=== PATIENT | female | born 1975 | race Caucasian/White ===

== ENCOUNTER 2022-09-28 11:40 | Outpatient (REF) | payer OTHER, SELFPAY ==
[2022-09-28 11:52] LABS: MANUAL DIFF FLAG NO
[2022-09-28 12:15] LABS: Basophils Percent Auto 0.6 % (0-2); Eosinophils Percent Auto 0.7 % (0-4); Hematocrit 42.3 % (37.0-47.0); Hemoglobin 13.6 g/dl (12.0-16.0); Imm Gran Abs Auto 0.01 X10*3/uL (0.00-0.03); Imm Gran Pct Auto 0.2 % (0.0-0.4); Lymphocytes Absolute Auto 1.3 X10*3/uL (1.2-4.9); Lymphocytes Percent Auto 23.2 % (20-40); Mean Corpuscular HGB Conc 32.2 g/dl (31.0-35.0); Mean Corpuscular Volume 105.8 fL (80.0-98.0); Mean Platelet Volume 10.2 fL (9.4-12.3); Monocytes Absolute Auto 0.6 X10*3/uL (0.1-1.2); Monocytes Percent Auto 10.2 % (2-11); Neutrophils Absolute Auto 3.5 x10*3/uL (2.0-8.3); Neutrophils Percent Auto 65.1 % (45-73); Platelet Count 199 X10*3/uL (160-400); White Blood Count 5.4 X10*3/uL (4.8-10.8)
[2022-09-28 12:43] LABS: Alanine Aminotransferase 87 U/L (0-31); Albumin Level 4.2 g/dL (3.5-5.0); Alkaline Phosphatase 140 U/L (39-117); Anion Gap 16 (12-20); Aspartate Amino Transferase 49 U/L (5-31); Bilirubin Total 0.2 mg/dL (0.0-1.0); Blood Urea Nitrogen 8 mg/dL (9-16); Calcium 9.6 mg/dL (8.4-10.2); Carbon Dioxide 27 mmol/L (22-29); Chloride 103 mmol/L (96-108); Estimated Glomerular Filt Rate > 60; Glucose Random 80 mg/dL (60-115); Potassium 4.2 mmol/L (3.3-5.1); Sodium 142 mmol/L (135-145); Total Protein 6.6 g/dL (6.5-8.0)
[2022-10-01 09:19] LABS: HBS Num1 2.45 mIU/mL (0-7.99); HBc Num1 0.09 S/CO (0.00-0.79); HBsAGNum1 0.18 S/CO (0.00-0.99); HIV AB/AG Nonreactive (Nonreactive); HIV Num 1 0.08 S/CO (0.00-0.99); Hepatitis B Core Antibody Nonreactive (Nonreactive); Hepatitis B Surface Antigen Negative (Negative); ~HepC Num1 0.17 S/CO (0.00-0.79); ~Hepatitis B Surface Antibody NONREACTIVE (Nonreactive); ~Hepatitis C Antibody Nonreactive (Nonreactive)
[2022-10-03 08:03] LABS: Hepatitis A Antibody IgM 0.19 Index (0-0.79); ~Hepatitis A Antibody IgM Nonreactive (Nonreactive)
== END 2022-09-28 11:41 | disposition home or self-care (01) ==
LOC: HO.LAB 11:40
PROVIDERS: PCP Internal Medicine; Visit Provider Nurse Practitioner Psychiatric/Mental Health
DX: Z11.4 Encounter for screening for human immunodeficiency virus [HIV] (principal); F10.20 Alcohol dependence, uncomplicated; Z51.81 Encounter for therapeutic drug level monitoring; Z79.899 Other long term (current) drug therapy
CPT/HCPCS: 36415; 80053; 80305; 85025; 86704; 86706; 86709; 86803; 87340; 87389; 99202

== ENCOUNTER 2022-10-05 09:48 | Outpatient (REF) | payer OTHER, SELFPAY ==
[2022-10-05 15:22] LABS: Fentanyl, urine Not Detected (Not Detect)
== END 2022-10-05 09:49 | disposition home or self-care (01) ==
LOC: HO.LAB 09:48
PROVIDERS: PCP Internal Medicine; Visit Provider Nurse Practitioner Psychiatric/Mental Health
DX: F10.20 Alcohol dependence, uncomplicated (principal); Z51.81 Encounter for therapeutic drug level monitoring; Z79.899 Other long term (current) drug therapy
CPT/HCPCS: 80305; 80307; 99212

== ENCOUNTER 2022-10-22 08:00 | Outpatient (RCR) | payer OTHER, SELFPAY ==
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
[2022-10-08 15:24] LABS: Amphetamine Screen Urine Not Detected (Not Detect); Barbiturates, Urine Not Detected (Not Detect); Benzodiazepines Screen Urine Not Detected (Not Detect); Cannabinoid Screen Urine POSITIVE (Not Detect); Cocaine Screen Urine Not Detected (Not Detect); Fentanyl, urine Not Detected (Not Detect); Opiate Screen Urine Not Detected (Not Detect); Phencyclidine Screen Urine Not Detected (Not Detect)
--- NOTE | 2022-10-08 16:27 | PC.ADMIT ---
Patient is a 47 year old single female who was referred to PHP by Stephany Neville CNP at the [facility] where patient receives medication assisted treatment for ETOH use. Patient reports she was sober from ETOH for the past year and a half and relapsed on ETOH for the past 6 months. Patient reports last use 09/20/22 and is looking for support for continued sobriety in addition to support for mental health issues. Patient is attending AA 4 days a week. Patient reports she was detoxed from ETOH with Ativan from her PCP. Denied current withdrawal sxs. Patient is alert and oriented x4. Calm and cooperative. Presented with depressed mood and anxious affect. Tearful at times. Denied SI or thoughts to harm herself. Medications reconciled with patient and patient's pharmacy. Taking medications as prescribed with the exception of forgetting to take afternoon dose of Acamprosate. Educated patient on ways to remember to take afternoon dose.
--- NOTE | 2022-10-09 11:48 | HO.PHPIOP ---
I met with pt to discuss treatment plan, aftercare, and schedule. She reported adherence with goals stated on treatment plan, and stressed that sobriety is her ultimate goal. We discussed several options for aftercare including a substance use IOP to continue the work she is starting at [facility]. She declined for now but said she'd keep it in mind. I agreed to refer pt to [facility] for aftercare. Pt has been attending AA meetings daily and has a sponsor who she connects well with.
--- NOTE | 2022-10-09 14:58 | HO.PHPIOP ---
I met with the client after she left the last group. She stated that she4 was feeling overwhelmed and playing a game wasnt going to help her. I tried to help her understand how group recreation can be helpful. She states that not at this time of early recovery for her. She became tearful when was discussed how difficult early recovery can be . She decided to take a walk outside while she was waiting for her ride. She has plans to attend [facility]. We agreed she could talk to Vanessa tomorrow about her schedule.
--- NOTE | 2022-10-11 15:55 | HO.PHPIOP ---
Case opened in treatment team.
--- NOTE | 2022-10-16 15:45 | P.PNPSP_ITS ---
Subjective Subjective Date of Service: 10/16/22 Reason For Visit: depression,anxiety Medical Problems Affecting Mental Status: No Interim History: Describes mood as good today. No SI, no safety concerns. Finding groups helpful. Campral not helping much with cravings. Continues to remain abstinent, participating in 12 step groups. Taking hydroxyzine prn for anxidety, request dose increase. Medication Compliance: Yes Side effects from medications: No Attending Groups: Yes Review of Systems Acute medical concerns: No Medical Review of Systems: unchanged Review of Systems Review of Systems Yes all other systems are reviewed and are negative Constitutional: Reports no additional constitutional complaints Mental Status Exam Mental Status Exam Narrative: NAD Patient Appearance: Appropriate Patient Orientation: Person, Place, Time and Situation Level of Consciousness: Appropriate Patient Behavior: Appropriate, Cooperative and Good Eye Contact Mood Description: Appropriate Affect Description: Anxious (less anxious today) Patient Cognition Impaired: No Ability to Follow Directions: Excellent Speech Pattern: Clear and Appropriate Memory Description: Intact Hallucinations: None Delusions: Not Present Thought Process: Intact Thought Content: positive for Intact Depressive Symptoms: Increased Anxiety, Difficulty Sleeping, Loss of Int. in Activity, Feelings of Guilt and Low Self Esteem Judgement: Fair Assessment & Plan Assessment & Plan (1) MDD (major depressive disorder): Status: Acute Code(s): F32.9 - Major depressive disorder, single episode, unspecified Assessment and Plan: Describes mood as good today. Taking Paxil as prescribed. No SI, no safety concerns. Finding groups helpful. Campral not helping much with cravings. Discussed last use of Suboxone. Patient states that it was over several weeks ago. Discussed changing from Campral to naltrexone. Patient was in agreement with this. She wants to ultimately received Vivitrol. Continues to remain abstinent, participating in 12 step groups. Taking hydroxyzine prn for anxidety, request dose increase. States that she has taken extra dose several times in order to help with anxiety. (2) Generalized anxiety disorder: Status: Acute Code(s): F41.1 - Generalized anxiety disorder (3) Alcohol use disorder, moderate, dependence: Status: Acute Code(s): F10.20 - Alcohol dependence, uncomplicated Plan 1. Continue with current [facility] plan of care. 2. Discontinue Campral. 3. Start naltrexone 50 mg daily. Patient instructed to take 25 mg daily for for several days. 4. Increase hydroxyzine to 50 mg four times daily p.r.n./anxiety. 5. Continue other medications as currently prescribed. 6. Follow-up as per protocol. Patient educated on: diagnosis, medication risk/benefits, substance abuse and therapeutic strategies Informed Consent: understands Reason for contiued partial hosp. stay Substantial Risk for: inability to function and rapid decompensation Certification I certify that partial hospital treatment is medically necessary due to the symptoms and problems resulting from the patient's mental illness and the failure to treat the patient at the partial hospital level of care would likely result in the patient requiring inpatient psychiatric care which could not be prevented at a less intensive level of care. I spent minutes with the patient and/or on the patient floor today, greater than?50% of which was spent counseling/coordinating care. Discharge Plan Discharge Attending provider: Sandeep Archuleat Medications: New nicotine 21 mg/24 hr patch 24 hour 1 patch transdermal DAILY Qty: 28 0RF naltrexone 50 mg tablet 50 mg PO DAILY Qty: 7 0RF Rx Instructions: take 1/2 tab (25mg) first 2 to 3 days, then astart 1 tab (50mg) daily hydroxyzine HCl 50 mg tablet 50 mg PO QID PRN (Reason: anxiety) Qty: 120 0RF Discontinued acamprosate 333 mg tablet,delayed release (DR/EC) 666 mg PO TID Qty: 84 0RF hydroxyzine HCl 25 mg tablet 25 mg PO TID PRN (Reason: anxiety) Qty: 30 0RF No Action folic acid 1 mg tablet 1 mg PO DAILY Qty: 30 0RF thiamine HCl (vitamin B1) 100 mg tablet 100 mg PO DAILY Qty: 30 0RF paroxetine HCl [Paxil] 20 mg Tablet 20 mg PO DAILY
--- NOTE | 2022-10-22 17:14 | P.PNPSP_ITS ---
Subjective Subjective Date of Service: 10/22/22 Reason For Visit: depression,anxiety Medical Problems Affecting Mental Status: No Interim History: Patient describes mood today as ?I am okay, happy ?. Denies any symptoms of depression or anxiety at this time. No SI, no safety concerns. Continues with naltrexone, with positive effect. Continues to remain abstinent from alcohol. Currently active in 12 step programs, building support network of others in recovery. Feels stable, states that she feels ready for discharge from [facility] at this time. Medication Compliance: Yes Side effects from medications: No Attending Groups: Yes Review of Systems Acute medical concerns: No Medical Review of Systems: unchanged Review of Systems Review of Systems Yes all other systems are reviewed and are negative Constitutional: Reports no additional constitutional complaints Mental Status Exam Mental Status Exam Narrative: NAD Patient Appearance: Appropriate Patient Orientation: Person, Place, Time and Situation Level of Consciousness: Appropriate Patient Behavior: Appropriate, Cooperative and Good Eye Contact Mood Description: Happy and Appropriate Affect Description: Happy and Appropriate Patient Cognition Impaired: No Ability to Follow Directions: Excellent Speech Pattern: Clear, Appropriate and Coherent Memory Description: Intact Hallucinations: None Delusions: Not Present Thought Process: Intact Thought Content: positive for Intact Judgement: Good Assessment & Plan Assessment & Plan (1) Alcohol use disorder, moderate, dependence: Status: Acute Code(s): F10.20 - Alcohol dependence, uncomplicated Assessment and Plan: Patient reports she feels ?happy today ?. Denies any overt symptoms of depression, anxiety, SI/HI. Reports that she feels safe. Currently active in a 12 step program, has built a sober network of people. Plans to return to work in 1 week. Continues with oral naltrexone, with good effect. Currently being treated at [facility]. Continues to remain with them. States that she feels stable for discharge at this time. Reports that she has found this program to be helpful. Discussed referral to add Care Intensive Outpatient program specifically focused on substance use, she states she does not feel she needs that program at this time. States that she will call them if she feels the need. (2) MDD (major depressive disorder): Status: Acute Code(s): F32.9 - Major depressive disorder, single episode, unspecified (3) Generalized anxiety disorder: Status: Acute Code(s): F41.1 - Generalized anxiety disorder Plan 1. Patient appears stable for discharge from [facility] at this time. 2. Patient to follow-up with outpatient providers going forward. Patient educated on: diagnosis, medication risk/benefits, substance abuse and therapeutic strategies Informed Consent: understands Reason for contiued partial hosp. stay Substantial Risk for: stable for discharge Certification I certify that partial hospital treatment is medically necessary due to the symptoms and problems resulting from the patient's mental illness and the failure to treat the patient at the partial hospital level of care would likely result in the patient requiring inpatient psychiatric care which could not be prevented at a less intensive level of care. I spent minutes with the patient and/or on the patient floor today, greater than?50% of which was spent counseling/coordinating care. Discharge Plan Discharge Attending provider: Sandeep Archuleta Additional Instructions: In-person appointment with therapist Ender De La Torre on 12/29/21 at 10am at [facility] ([facility] [address] [place] [address]. Telehealth appointment, 1 hour psychiatric evaluation with med provider Reina Roque from [facility] on 11/21/22 at 11am. Telehealth appointment, medication management follow-up, with med provider Reina Roque from [facility] on 12/20/22 at 11am. Medications: New nicotine 21 mg/24 hr patch 24 hour 1 patch transdermal DAILY Qty: 28 0RF hydroxyzine HCl 50 mg tablet 50 mg PO QID PRN (Reason: anxiety) Qty: 120 0RF naltrexone 50 mg tablet 50 mg PO DAILY Qty: 14 0RF Discontinued acamprosate 333 mg tablet,delayed release (DR/EC) 666 mg PO TID Qty: 84 0RF hydroxyzine HCl 25 mg tablet 25 mg PO TID PRN (Reason: anxiety) Qty: 30 0RF No Action folic acid 1 mg tablet 1 mg PO DAILY Qty: 30 0RF thiamine HCl (vitamin B1) 100 mg tablet 100 mg PO DAILY Qty: 30 0RF paroxetine HCl [Paxil] 20 mg Tablet 20 mg PO DAILY Stand Alone Forms: Patient Portal Discharge page Patient Education: Depression (DC), Alcohol Use Disorder (DC)
== END 2022-10-22 23:59 | disposition home or self-care (01) ==
LOC: HO.PHPA 08:00
PROVIDERS: Nurse Practitioner Psychiatric/Mental Health; Visit Provider Psychiatry & Neurology Psychiatry
DX: F32.9 Major depressive disorder, single episode, unspecified (principal); F41.1 Generalized anxiety disorder; F10.20 Alcohol dependence, uncomplicated; Z79.899 Other long term (current) drug therapy
CPT/HCPCS: 80307; 90792; 90853

== ENCOUNTER → 2022-10-24 09:44 | Outpatient (BNVA) | payer OTHER, SELFPAY | PROVIDERS: PCP Internal Medicine; Visit Provider Nurse Practitioner Psychiatric/Mental Health | DX: F10.20 Alcohol dependence, uncomplicated (principal) | CPT/HCPCS: 99212 ==

== ENCOUNTER → 2022-11-12 09:44 | Outpatient (BNVA) | payer OTHER, SELFPAY | PROVIDERS: PCP Internal Medicine; Visit Provider Nurse Practitioner Psychiatric/Mental Health | DX: Z51.81 Encounter for therapeutic drug level monitoring (principal); Z32.01 Encounter for pregnancy test, result positive; F11.20 Opioid dependence, uncomplicated | CPT/HCPCS: 80305; 81025; 96372; 99212 ==

== ENCOUNTER 2022-12-10 09:26 | Outpatient (REF) | payer OTHER, SELFPAY ==
[2022-12-10 11:08] LABS: Alanine Aminotransferase 15 U/L (0-31); Albumin Level 4.4 g/dL (3.5-5.0); Alkaline Phosphatase 94 U/L (39-117); Aspartate Amino Transferase 16 U/L (5-31); Bilirubin Direct 0.2 mg/dL (0.0-0.5); Bilirubin Total 0.4 mg/dL (0.0-1.0); Total Protein 6.8 g/dL (6.5-8.0)
== END 2022-12-10 09:27 | disposition home or self-care (01) ==
LOC: HO.LAB 09:26
PROVIDERS: PCP Internal Medicine; Visit Provider Nurse Practitioner Psychiatric/Mental Health
DX: F10.20 Alcohol dependence, uncomplicated (principal); F17.210 Nicotine dependence, cigarettes, uncomplicated; Z51.81 Encounter for therapeutic drug level monitoring; Z79.899 Other long term (current) drug therapy; Z32.00 Encounter for pregnancy test, result unknown
CPT/HCPCS: 36415; 80076; 80305; 81025; 96372; 99212

== ENCOUNTER → 2023-01-07 09:36 | Outpatient (BNVA) | payer OTHER, SELFPAY | PROVIDERS: PCP Internal Medicine; Visit Provider Nurse Practitioner Psychiatric/Mental Health | DX: F10.20 Alcohol dependence, uncomplicated (principal); Z32.02 Encounter for pregnancy test, result negative | CPT/HCPCS: 80305; 81025; 96372; 99212 ==

== ENCOUNTER → 2023-02-04 09:08 | Outpatient (BNVA) | payer OTHER, SELFPAY | PROVIDERS: PCP Internal Medicine; Visit Provider Nurse Practitioner Psychiatric/Mental Health | DX: F10.20 Alcohol dependence, uncomplicated (principal); Z32.01 Encounter for pregnancy test, result positive | CPT/HCPCS: 81025; 96372; 99212 ==

== ENCOUNTER → 2023-03-04 08:52 | Outpatient (BNVA) | payer OTHER, SELFPAY | PROVIDERS: PCP Internal Medicine; Visit Provider Nurse Practitioner Psychiatric/Mental Health | DX: Z51.81 Encounter for therapeutic drug level monitoring (principal); F10.20 Alcohol dependence, uncomplicated; Z32.02 Encounter for pregnancy test, result negative; Z79.899 Other long term (current) drug therapy | CPT/HCPCS: 80305; 81025; 96372; 99212 ==

== ENCOUNTER → 2023-04-08 09:06 | Outpatient (BNVA) | payer OTHER, SELFPAY | PROVIDERS: PCP Internal Medicine; Visit Provider Nurse Practitioner Psychiatric/Mental Health | DX: F10.20 Alcohol dependence, uncomplicated (principal); Z79.899 Other long term (current) drug therapy | CPT/HCPCS: 80305; 81025; 96372; 99212 ==

== ENCOUNTER → 2023-05-06 08:53 | Outpatient (BNVA) | payer OTHER, SELFPAY | PROVIDERS: PCP Internal Medicine; Visit Provider Nurse Practitioner Psychiatric/Mental Health | DX: Z51.81 Encounter for therapeutic drug level monitoring (principal); F10.20 Alcohol dependence, uncomplicated; Z32.02 Encounter for pregnancy test, result negative; Z79.899 Other long term (current) drug therapy | CPT/HCPCS: 80305; 81025; 96372; 99212 ==

== ENCOUNTER → 2023-06-03 09:00 | Outpatient (BNVA) | payer OTHER, SELFPAY | PROVIDERS: PCP Internal Medicine; Visit Provider Nurse Practitioner Psychiatric/Mental Health | DX: Z51.81 Encounter for therapeutic drug level monitoring (principal); F10.20 Alcohol dependence, uncomplicated | CPT/HCPCS: 80305; 81025; 96372; 99212 ==

== ENCOUNTER 2023-07-01 09:10 | Outpatient (AMB) | payer OTHER, SELFPAY ==
--- NOTE | 2023-07-01 09:11 | A.OFFVIS_ITS ---
Intake Vital Signs 07/01/23 09:20 BP 110/70 Blood Pressure Location Lt radial Position Sitting Pulse 61 Pulse Source Pulse Oximeter Pulse Oximetry (%) 97 Oxygen Delivery Method Room Air Intake Visit Reasons: Mabel Inj Intake Note: the patient presents for a mabel inj Exploration Manager Required: No Allergies No Known Allergies [No Known Allergies*] Allergy (Unverified 07/01/23 09:12) Do you need a note to return to daycare/school/sports/work: No HPI Mabel Inj HPI Details Patient presents for AUD follow up and Vivitrol injection Patient states that one week agter last injection she noted that the area of injection became hard and swollen . Denies any fever, drainage, redness. Encouraged patient to call office should this happen again. Reports doing well with recovery, however has been working 7 days per week, which in the past for her has led to recurrence of drinking . Discussed strategies for self care including having one scheduled day off per week and strengthening boundaries with employer. [facility] Medical History (Updated 10/08/22 @ 16:32 by Whit Portillo RN) Gastrointestinal perforation Surgical History (Updated 10/08/22 @ 16:33 by Whit Portillo RN) History of colostomy History of colostomy reversal Social History Household Members: None Patient Tobacco Use Status: Current everyday Tobacco user Tobacco use type: Cigarette Cigarette Packs Per Day: 1 Years Smoked: Since age 13 Review of Systems Const Reports as per HPI and Reports no additional complaints Physical Exam Vital Signs: Last Vital Signs Pulse 61 07/01/23 09:20 BP 110/70 07/01/23 09:20 Pulse Ox 97 07/01/23 09:20 Oxygen Delivery Method Room Air 07/01/23 09:20 Const General: well groomed Skin General skin exam: no rashes or lesions noted Psych Appearance: well kempt Speech and movement: Clear speech present Affect: normal affect Attitude: cooperative Thought process: Normal thought process present Thought content: Normal thought content present Insight: Good insight present (Psych) Judgement: Good judgement present (Psych) Office Meds Vivitrol ER Performing Provider: Stephany Neville CNP Administered by: Shobha Pelayo on 07/01/23 09:48 Dose Route Admin Location Lot Number Expiration Date NDC Intake Rn 380 mg IM [id number] 10/01/25 [id number] [facility] [employer] [facility] Comments: Pt tolerated injection well. Pt reports approx a week after last injection the area was red and firm but went away. Pt denies having had a fever or other signs of infection. Discussed signs/symptoms of infection, encouraged to call the [facility] with questions or concerns. Results AMB 14 Panel Urine Drug Screen Urine Marijuana (THC) Positive Last Edit by Christy Coleman CMA on 07/01/23 09:21 Urine Cocaine Negative Last Edit by Christy Coleman CMA on 07/01/23 09:21 Urine Morphine Negative Last Edit by Christy Coleman CMA on 07/01/23 09:21 Urine Methamphetamine Negative Last Edit by Christy Coleman CMA on 07/01/23 09:21 Urine Amphetamine Negative Last Edit by Christy Coleman CMA on 07/01/23 09:2 1 Urine Benzodiazepine Negative Last Edit by Christy Coleman CMA on 07/01/23 09:21 Urine Barbiturates Negative Last Edit by Christy Coleman CMA on 07/01/23 09: 21 Urine Methadone Negative Last Edit by Christy Coleman CMA on 07/01/23 09:21 Urine Buprenorphine Negative Last Edit by Christy Coleman CMA on 07/01/23 09 :21 Urine Tricyclic Antidepressant Negative Last Edit by Christy Coleman CMA on 07/01/23 09:21 Urine MDMA Negative Last Edit by Christy Coleman CMA on 07/01/23 09:21 Urine Oxycodone Negative Last Edit by Christy Coleman CMA on 07/01/23 09:21 Urine Phencyclidine Negative Last Edit by Christy Coleman CMA on 07/01/23 09 :21 Urine Propoxyphene Negative Last Edit by Christy Coleman CMA on 07/01/23 09: 21 AMB Test Urine AMB Test Urine Negative Last Edit by Christy Coleman CMA on 09:22 Results Reviewed Results Reviewed: Laboratory Last Values Tst Clinic Negative 07/01/23 09:12 POC Urine Buprenorphine Negative 07/01/23 09:12 POC Urine Morphine Negative 07/01/23 09:12 POC Urine Oxycodone Negative 07/01/23 09:12 POC Urine Methadone Negative 07/01/23 09:12 POC Urine Propoxyphene Negative 07/01/23 09:12 POC Urine Barbiturates Negative 07/01/23 09:12 POC U Tricyclic Antidpr Negative 07/01/23 09:12 POC Urine PCP Negative 07/01/23 09:12 POC Ur Amphetamines Negative 07/01/23 09:12 POC Ur Methamphetamine Negative 07/01/23 09:12 POC Urine MDMA Negative 07/01/23 09:12 POC Ur Benzodiazepine Negative 07/01/23 09:12 POC Urine Cocaine Negative 07/01/23 09:12 POC Ur Marijuana (THC) Positive 07/01/23 09:12 Assessment & Plan Assessment & Plan (1) Alcohol use disorder, moderate, dependence: Code(s): F10.20 - Alcohol dependence, uncomplicated Plan: * tolerated injection * follow up 4 weeks * relapse prevention discussion Orders: Orders AMB Naltrexone Injection Patient Supplied Today F10.20 - Alcohol dependence, uncomplicated AMB 14 Panel Urine Drug Screen Today Z51.81 - Encounter for therapeutic drug level monitoring AMB HCG Urine Test Today Z32.01 - Encounter for test, result positive, Z32.02 - Encounter for test, result negative Coding Level of Care Code Est Pt Level 3 (35078) Diagnoses Alcohol use disorder, moderate, dependence F10.20
[2023-07-01 09:20] VITALS: BP 110/70; PULSE 61; O2SAT 97
== END 2023-07-01 10:21 | disposition home or self-care (01) ==
LOC: HO.HCC 09:10
PROVIDERS: PCP Internal Medicine; Visit Provider Nurse Practitioner Psychiatric/Mental Health
DX: Z32.02 Encounter for pregnancy test, result negative (principal); Z32.01 Encounter for pregnancy test, result positive; F10.20 Alcohol dependence, uncomplicated; Z51.81 Encounter for therapeutic drug level monitoring
CPT/HCPCS: 99213; J2315

== ENCOUNTER → 2023-07-01 09:10 | Outpatient (BNVA) | payer OTHER, SELFPAY | PROVIDERS: PCP Internal Medicine; Visit Provider Nurse Practitioner Psychiatric/Mental Health | DX: Z51.81 Encounter for therapeutic drug level monitoring (principal); Z32.02 Encounter for pregnancy test, result negative; F10.20 Alcohol dependence, uncomplicated; Z79.899 Other long term (current) drug therapy | CPT/HCPCS: 80305; 81025; 96372; 99212 ==

== ENCOUNTER 2023-08-06 09:28 | Outpatient (AMB) | payer OTHER, SELFPAY ==
--- NOTE | 2023-08-06 09:29 | AM.OFFVISNUR ---
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: No Allergies No Known Allergies [No Known Allergies*] Allergy (Unverified 08/06/23 09:30) Do you need a note to return to daycare/school/sports/work: No Results AMB 14 Panel Urine Drug Screen Urine Marijuana (THC) Positive Last Edit by Christy Coleman CMA on 08/06/23 09:39 Urine Cocaine Negative Last Edit by Christy Coleman CMA on 08/06/23 09:39 Urine Morphine Negative Last Edit by Christy Coleman CMA on 08/06/23 09:39 Urine Methamphetamine Negative Last Edit by Christy Coleman CMA on 08/06/23 09:39 Urine Amphetamine Negative Last Edit by Christy Coleman CMA on 08/06/23 09:39 Urine Benzodiazepine Negative Last Edit by Christy Coleman CMA on 08/06/23 09:39 Urine Barbiturates Negative Last Edit by Christy Coleman CMA on 08/06/23 09:39 Urine Methadone Negative Last Edit by Christy Coleman CMA on 08/06/23 09:39 Urine Buprenorphine Negative Last Edit by Christy Coleman CMA on 08/06/23 09:39 Urine Tricyclic Antidepressant Negative Last Edit by Christy Coleman CMA on 08/06/23 09:39 Urine MDMA Negative Last Edit by Christy Coleman CMA on 08/06/23 09:39 Urine Oxycodone Negative Last Edit by Christy Coleman CMA on 08/06/23 09:39 Urine Phencyclidine Negative Last Edit by Christy Coleman CMA on 08/06/23 09:39 Urine Propoxyphene Negative Last Edit by Christy Coleman CMA on 08/06/23 09:39 AMB Test Urine AMB Test Urine Negative Last Edit by Christy Coleman CMA on 08/06/23 09:40 Coding Diagnoses Assessment & Plan Assessment & Plan Orders: Orders AMB 14 Panel Urine Drug Screen Today Z51.81 - Encounter for therapeutic drug level monitoring AMB HCG Urine Test Today Z32.01 - Encounter for test, result positive, Z32.02 - Encounter for test, result negative
[2023-08-06 09:37] VITALS: BP 122/78; PULSE 69; O2SAT 97
== END 2023-08-06 10:08 | disposition home or self-care (01) ==
LOC: HO.HCC 09:28
PROVIDERS: PCP Internal Medicine
DX: Z32.02 Encounter for pregnancy test, result negative (principal); Z32.01 Encounter for pregnancy test, result positive; F10.20 Alcohol dependence, uncomplicated; Z51.81 Encounter for therapeutic drug level monitoring
CPT/HCPCS: J2315

== ENCOUNTER → 2023-08-06 09:28 | Outpatient (BNVA) | payer OTHER, SELFPAY | PROVIDERS: PCP Internal Medicine | DX: F10.20 Alcohol dependence, uncomplicated (principal) | CPT/HCPCS: 80305; 81025; 96372 ==

== ENCOUNTER 2023-08-12 12:08 | Outpatient (REF) | payer OTHER, SELFPAY ==
[2023-08-12 13:18] LABS: MANUAL DIFF FLAG NO
[2023-08-12 13:31] LABS: Basophils Absolute Auto 0.1 X10*3/uL (0.0-0.2); Basophils Percent Auto 0.7 % (0-2); Eosinophils Absolute Auto 0.2 X10*3/uL (0.0-0.4); Hematocrit 42.3 % (37.0-47.0); Hemoglobin 14.1 g/dl (12.0-16.0); Imm Gran Abs Auto 0.01 X10*3/uL (0.00-0.03); Imm Gran Pct Auto 0.1 % (0.0-0.4); Lymphocytes Absolute Auto 2.7 X10*3/uL (1.2-4.9); Lymphocytes Percent Auto 36.2 % (20-40); Mean Corpuscular HGB Conc 33.3 g/dl (31.0-35.0); Mean Corpuscular Hemoglobin 32.4 pg (27.0-33.0); Mean Corpuscular Volume 97.2 fL (80.0-98.0); Mean Platelet Volume 10.6 fL (9.4-12.3); Monocytes Absolute Auto 0.5 X10*3/uL (0.1-1.2); Monocytes Percent Auto 6.8 % (2-11); Neutrophils Absolute Auto 4.1 x10*3/uL (2.0-8.3); Neutrophils Percent Auto 54.2 % (45-73); Platelet Count 206 X10*3/uL (160-400); Red Blood Count 4.35 X10*6/uL (4.20-5.50); Red Cell Distribution Width 13.2 % (11.0-16.0); White Blood Count 7.5 X10*3/uL (4.8-10.8)
[2023-08-12 13:48] LABS: Alanine Aminotransferase 24 U/L (0-31); Albumin Level 4.4 g/dL (3.5-5.0); Alkaline Phosphatase 79 U/L (39-117); Anion Gap 10 (12-20); Aspartate Amino Transferase 27 U/L (5-31); Bilirubin Total 0.5 mg/dL (0.0-1.0); Blood Urea Nitrogen 9 mg/dL (9-16); Calcium 9.8 mg/dL (8.4-10.2); Carbon Dioxide 28 mmol/L (22-29); Chloride 110 mmol/L (96-108); Estimated Glomerular Filt Rate > 60; Glucose Random 96 mg/dL (60-115); Potassium 4.3 mmol/L (3.3-5.1); Sodium 144 mmol/L (135-145); Total Protein 6.8 g/dL (6.5-8.0)
[2023-08-12 14:03] LABS: Free T4 (Free Thyroxine) 0.99 ng/dL (0.71-1.85); Thyroid Stimulating Hormone 0.29 uIU/mL (0.32-4.0)
== END 2023-08-12 12:09 | disposition home or self-care (01) ==
LOC: HO.10HDL 12:08
PROVIDERS: Visit Provider Internal Medicine
DX: K57.90 Diverticulosis of intestine, part unspecified, without perforation or abscess without bleeding (principal); R63.4 Abnormal weight loss; Z72.0 Tobacco use
CPT/HCPCS: 36415; 80053; 84439; 84443; 85025

== ENCOUNTER 2025-06-03 14:01 | Emergency (ER) | payer OTHER, SELFPAY ==
[2025-06-03 14:03] VITALS: BP 162/111; PULSE 123; RESP 16; TEMP 36.7; O2SAT 92; BMI 19.7
--- NOTE | 2025-06-03 14:08 | ED_ITS ---
HPI - General Adult General Chief complaint: ETOH/Substance Use Stated complaint: Crisis Time Seen by Provider: 06/03/25 14:44 Related Data Home Medications ?Medication ?Instructions ?Recorded ?Confirmed paroxetine HCl 20 mg tablet (Paxil) 20 mg PO DAILY 06/2211/12/22 Previous Rx's ?Medication ?Instructions ?Recorded nicotine 21 mg/24 hr daily 1 patch transdermal DAILY # 28 ea 10/12/22 transdermal patch folic acid 1 mg tablet 1 mg PO DAILY #30 tabs 10/24 thiamine HCl (vitamin B1) 100 mg 100 mg PO DAILY #30 t abs 10/24/22 tablet naltrexone 50 mg tablet 50 mg PO DAILY #30 tabs 11/01 01/23 naloxone 4 mg/actuation nasal 4 mg intranasal Q2M PRN opioid 04/08/23 spray (Narcan) overdose #2 ea hydroxyzine HCl 50 mg tablet 50 mg PO TID PRN for anxi ety #90 05/08/23 tabs naltrexone microspheres 380 mg 380 mg IM Q4W #1 ea 04/23 intramuscular suspension,extended release (Vivitrol) Allergies Allergy/AdvReac Type Severity Reaction Status Date / Time No Known Allergies (No Known Allergy Verified 06/03/25 14:08 Allergies*) [facility] Past Medical History Medical History Gastrointestinal perforation Surgical History History of colostomy reversal History of colostomy Social History Social History Household Members: None Patient Tobacco Use Status: Current everyday Tobacco user Tobacco use type: Cigarette Cigarette Packs Per Day: 1 Years Smoked: Since age 13 Advance Directives: No Advance Directives Information Provided: No Do you have a plan to hurt others: No Plan Physical Exam ED Vital Signs: Vital Signs - 24 hr 06/03/25 14:03 Temperature 98.1 F Pulse Rate 123 H Respiratory Rate 16 Blood Pressure 162/111 H Pulse Oximetry 92 Oxygen Delivery Method Room Air BMI result Body Mass Index 19.7 Course Course Course Narrative: RME: 49-year-old female presents to the ED requesting detox. Patient states she has been drinking every day Liters of Vodka. Patient states boyfriend in senior living. Patient is not suicidal homicidal. Labs control and recovery combat rescue for which ordered. Reevaluation(s) Reevaluation #1: Intoxicated, require 5 mg of Valium orally in the emergency room to control her agitation, vague suicidal gesturing, will start physician observation and re- evaluate when she sober. Time: 15:18 Medical Decision Making Differential Diagnosis Differential Diagnoses: The differential diagnosis associated with the presentation includes (Alcohol intoxication, polysubstance abuse, SI, HI, hallucination.) Admission/Observation Consideration of admission/observation: Escalation of care including admission/observation considered Lab Data MDM Lab Attestation statement: I reviewed the patient's lab results. 06/03/25 14:15 06/03/25 14:15 Labs: Lab Results 06/03/25 06/03/25 Range/Units 14:15 14:49 WBC 7.8 (4.8-10.8) X10*3/uL RBC 4.44 (4.20-5.50) X10*6/uL Hgb 16.1 H (12.0-16.0) g/dl Hct 44.6 (37.0-47.0) % MCV 100.5 H (80.0-98.0) fL MCH 36.3 H (27.0-33.0) pg MCHC 36.1 H (31.0-35.0) g/dl RDW 12.8 (11.0-16.0) % Plt Count 206 (160-400) X10*3/uL MPV 9.7 (9.4-12.3) fL Immature Gran % (Auto) 0.1 (0.0-0.4) % Neut % (Auto) 54.4 (45-73) % Lymph % (Auto) 38.7 (20-40) % Gilliam % (Auto) 5.1 (2-11) % Eos % (Auto) 1.2 (0-4) % Baso % (Auto) 0.5 (0-2) % Lymph # (Auto) 3.0 (1.2-4.9) X10*3/uL Gilliam # (Auto) 0.4 (0.1-1.2) X10*3/uL Eos # (Auto) 0.1 (0.0-0.4) X10*3/uL Baso # (Auto) 0.0 (0.0-0.2) X10*3/uL Abs Immat Gran (auto) 0.01 (0.00-0.03) X10*3/uL Absolute Neuts (auto) 4.3 (2.0-8.3) x10*3/uL Absolute Nucleated RBC 0.000 (0.0-0.012) X10*3/uL Nucleated RBC % (auto) 0.0 (0.0-0.2) /100WBC Sodium 146 H (135-145) mmol/L Potassium 3.9 (3.3-5.1) mmol/L Chloride 106 (96-108) mmol/L Carbon Dioxide 27 (22-29) mmol/L Anion Gap 17 (12-20) BUN 12 (9-16) mg/dL Creatinine 0.56 (0.5-1.4) mg/dL Estim Creat Clear Calc 115.9 Estimated GFR > 60 Random Glucose 98 (60-115) mg/dL Calcium 9.3 (8.4-10.2) mg/dL Magnesium 2.0 (1.6-2.6) mg/dL Total Bilirubin 0.8 (0.0-1.0) mg/dL AST 96 H (5-31) U/L ALT 48 H (0-31) U/L Alkaline Phosphatase 171 H (39-117) U/L Total Protein 7.5 (6.5-8.0) g/dL Albumin 4.9 (3.5-5.0) g/dL Urine Color Yellow Urine Appearance Clear Urine pH 7.0 (5.0-9.0) Ur Specific [place] <= 1.005 (1.005-1.025) Urine Protein Negative (Neg-Trace) mg/dL Urine Glucose (UA) Negative (Negative) mg/dL Urine Ketones Negative (Negative) mg/dL Urine Blood Negative (Negative) Urine Nitrite Negative (Negative) Ur Leukocyte Esterase Negative (Negative) Urine Test NEGATIVE (NEGATIVE) Urine Opiates Screen Not Detected (Not Detect) Ur Buprenorphine Scrn Not Detected (Not Detect) ng/mL Ur Oxycodone Screen Not Detected (Not Detect) ng/mL Urine Methadone Screen Not Detected (Not Detect) ng/mL Urine Fentanyl Screen Not Detected (Not Detect) Ur Barbiturates Screen Not Detected (Not Detect) Ur Phencyclidine Scrn Not Detected (Not Detect) Ur Amphetamines Screen Not Detected (Not Detect) U Benzodiazepines Scrn Not Detected (Not Detect) Urine Cocaine Screen Not Detected (Not Detect) U Marijuana (THC) Screen Not Detected (Not Detect) Ethyl Alcohol 410 H* mg/dL Discharge Plan Discharge Prescriptions: No Action hydroxyzine HCl 50 mg tablet 50 mg PO TID PRN (Reason: for anxiety) Qty: 90 0RF Vivitrol 380 mg suspension,extended rel recon 380 mg IM Q4W Qty: 1 5RF paroxetine HCl [Paxil] 20 mg Tablet 20 mg PO DAILY nicotine 21 mg/24 hr patch 24 hour 1 patch transdermal DAILY Qty: 28 0RF folic acid 1 mg tablet 1 mg PO DAILY Qty: 30 3RF thiamine HCl (vitamin B1) 100 mg tablet 100 mg PO DAILY Qty: 30 3RF naltrexone 50 mg tablet 50 mg PO DAILY Qty: 30 0RF naloxone [Narcan] 4 mg/actuation spray,non-aerosol 4 mg intranasal Q2M PRN (Reason: opioid overdose) Qty: 2 1RF Rx Instructions: spray 1 dose into ONE nostril; alternate nostrils w each dose until help arrives Print Language: Macedonian
--- NOTE | 2025-06-03 14:15 | ECG_ITS ---
Test Reason : etoh Blood Pressure : */* mmHG Vent. Rate : 105 BPM Atrial Rate : 105 BPM P-R Int : 154 ms QRS Dur : 102 ms QT Int : 354 ms P-R-T Axes : 78 8 67 degrees QTcB Int : 467 ms Sinus tachycardia Incomplete right bundle branch block Cannot rule out Anterior infarct , age undetermined Abnormal ECG When compared with ECG of 06-Aug-2019 15:35, Incomplete right bundle branch block is now Present Minimal criteria for Anterior infarct are now Present Referred By: Kvng Myles Electronically Signed By: CORY ARRINGTON MD
[2025-06-03 14:28] LABS: MANUAL DIFF FLAG NO
[2025-06-03 14:33] LABS: Hematocrit 44.6 % (37.0-47.0); Hemoglobin 16.1 g/dl (12.0-16.0); Imm Gran Abs Auto 0.01 X10*3/uL (0.00-0.03); Imm Gran Pct Auto 0.1 % (0.0-0.4); Lymphocytes Absolute Auto 3.0 X10*3/uL (1.2-4.9); Mean Corpuscular HGB Conc 36.1 g/dl (31.0-35.0); Mean Corpuscular Hemoglobin 36.3 pg (27.0-33.0); Mean Corpuscular Volume 100.5 fL (80.0-98.0); NRBC Abs Auto 0.000 X10*3/uL (0.0-0.012); NRBC Pct Auto 0.0 /100WBC (0.0-0.2); Platelet Count 206 X10*3/uL (160-400); Red Blood Count 4.44 X10*6/uL (4.20-5.50); White Blood Count 7.8 X10*3/uL (4.8-10.8)
[2025-06-03 14:43] LABS: Alanine Aminotransferase 48 U/L (0-31); Albumin Level 4.9 g/dL (3.5-5.0); Alkaline Phosphatase 171 U/L (39-117); Anion Gap 17 (12-20); Aspartate Amino Transferase 96 U/L (5-31); Blood Urea Nitrogen 12 mg/dL (9-16); Calcium 9.3 mg/dL (8.4-10.2); Carbon Dioxide 27 mmol/L (22-29); Chloride 106 mmol/L (96-108); Creatinine Clr Calc Pharmacy 115.9; Estimated Glomerular Filt Rate > 60; Magnesium 2.0 mg/dL (1.6-2.6); Potassium 3.9 mmol/L (3.3-5.1); Sodium 146 mmol/L (135-145); Total Protein 7.5 g/dL (6.5-8.0)
[2025-06-03 14:56] LABS: Appearance Urine Clear; Glucose Urine UA Negative (Negative); PH 7.0 (5.0-9.0); Specific Gravity - Urine <= 1.005 (1.005-1.025); UPreg QC Valid YES
--- OUTSIDE RECORDS SUMMARY | 2025-06-03 15:05 | XMS_ITS | Clinical Summary ---
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 Name Role Phone Unavailable Primary Care Provider Unavailabl e Social History Tobacco Use Types Packs/Day Years Used Date Smoking Tobacco: Never Assessed Comments Unknown Sex and Gender Information Value Date Recorded Sex Assigned at Female 10/01/2022 10:20 AM EDT Legal Sex Female 10:20 AM EDT Gender Identity Choose not to disclose 10:20 AM EDT Sexual Orientation Choose not to disclose 2021 10:20 AM EDT Plan of Treatment Health Maintenance Due Date Last Done Comments CT Colonography 1975 Colonoscopy 1975 Colorectal Cancer Screening 1975 Depression Screening 1975 FIT DNA/Cologuard 1975 FIT 1975 FOBT 1975 Sigmoidoscopy 1975 Disability Screening 1975 Alcohol/Substance Use Screening 1987 Tobacco Screening 1987 Family Planning (PISQ) 1990 DTaP/Tdap/Td Vaccines (1 - Tdap) 1994 Hepatitis B Vaccines (1 of 3 - 19+ 3-dose series) 1994 Pap Smear 1996 Cervical Cancer Screening 2005 HPV/Cotest 2005 Mammogram 2015 COVID-19 Vaccine ( - 2023-2 5 season) 2024 Influenza Vaccine (Season Ended) 2025 Zoster Vaccines (1 of 2) 2025 RSV Patients and Pa tients Aged 60 years or older (1 - 1-dose 75+ series) 2050 HIB Vaccines Aged Out No longer eligi ble based on patient's age to complete this topic HPV Vaccines Aged Out No longer eligi ble based on patient's age to complete this topic Hepatitis A Vaccines Aged Out No long er eligible based on patient's age to complete this topic IPV Vaccines Aged Out No longer eligi ble based on patient's age to complete this topic Meningococcal B Vaccine Aged Out No l onger eligible based on patient's age to complete this topic Meningococcal Vaccine Aged Out No scar meng eligible based on patient's age to complete this topic Pneumococcal Vaccine: Pediat rics (0 to 5 Years) and At-Risk Patients (6 to 49) Years Aged Out No longer eligible b ased on patient's age to complete this topic RSV under 20 months Aged Out No longe r eligible based on patient's age to complete this topic Rotavirus Vaccines Aged Out No longer eligible based on patient's age to complete this topic
--- NOTE | 2025-06-03 15:08 | ED_ITS ---
HPI - Alcohol General Chief Complaint: ETOH/Substance Use Stated Complaint: Crisis Time Seen by Provider: 06/03/25 14:44 Source: patient Mode of arrival: ambulatory Limitations: no limitations History of Present Illness ED Provider: DR. Samuel HPI narrative: 49-year-old female brought in by her friend, patient in the ED is in apparent alcohol intoxication, patient is inappropriate with the ED staff keep saying ?get me the F out of here and let me ?patient is not providing any further history at this point. We will keep the patient under monitoring and observation until more sober. Related Data Home Medications ?Medication ?Instructions ?Recorded ?Confirmed paroxetine HCl 20 mg tablet (Paxil) 20 mg PO DAILY 06/2211/12/22 Previous Rx's ?Medication ?Instructions ?Recorded nicotine 21 mg/24 hr daily 1 patch transdermal DAILY # 28 ea 10/12/22 transdermal patch folic acid 1 mg tablet 1 mg PO DAILY #30 tabs 10/24 thiamine HCl (vitamin B1) 100 mg 100 mg PO DAILY #30 t abs 10/24/22 tablet naltrexone 50 mg tablet 50 mg PO DAILY #30 tabs 11/01 01/23 naloxone 4 mg/actuation nasal 4 mg intranasal Q2M PRN opioid 04/08/23 spray (Narcan) overdose #2 ea hydroxyzine HCl 50 mg tablet 50 mg PO TID PRN for anxi ety #90 05/08/23 tabs naltrexone microspheres 380 mg 380 mg IM Q4W #1 ea 04/23 intramuscular suspension,extended release (Vivitrol) Allergies Allergy/AdvReac Type Severity Reaction Status Date / Time No Known Allergies (No Known Allergy Verified 06/03/25 14:08 Allergies*) Review of Systems 2 Review of Systems: All other systems are reviewed and are negative Constitutional: Reports as per HPI and Reports no additional constitutional complaints Eyes: Reports as per HPI and Reports no additional eye complaints Reports system reviewed and no additional complaints, except as documented Cardiovascular: Reports as per HPI and Reports no additional cardiovascular complaints Respiratory: Reports as per HPI and Reports no additional respiratory complaints Gastrointestinal: Reports as per HPI and Reports no additional gastrointestinal complaints Genitourinary: Reports no additional female genitourinary complaints Musculoskeletal: Reports no additional musculoskeletal complaints Skin/Breast: Reports system reviewed and no additional complaints, except as docu Psychiatric: Reports no additional psychiatric complaints Endocrine: Reports no additional endocrine complaints Hematologic/Lymphatic: Reports no additional hematologic/lymphatic complaints Allergic/Immunologic: Reports no additional allergic/immunologic complaints Reports system reviewed and no additional complaints, except as documented and Reports Abnormal speech present COUNT INCLUDES [facility] Past Medical History Medical History Gastrointestinal perforation Surgical History History of colostomy reversal History of colostomy Social History Social History Household Members: None Patient Tobacco Use Status: Current everyday Tobacco user Tobacco use type: Cigarette Cigarette Packs Per Day: 1 Years Smoked: Since age 13 Advance Directives: No Advance Directives Information Provided: No Do you have a plan to hurt others: No Plan Physical Exam ED Vital Signs: Vital Signs - 24 hr 06/03/25 14:03 Temperature 98.1 F Pulse Rate 123 H Respiratory Rate 16 Blood Pressure 162/111 H Pulse Oximetry 92 Oxygen Delivery Method Room Air BMI result Body Mass Index 19.7 Vital signs have been reviewed and appear to be correct. Blood pressure elevated. Tachycardia, Respiratory rate normal. Temperature normal. Oxygen saturation normal. Appearance: Intoxicated, inappropriate foul language in the ED, No acute distress. Head: Normal external exam. Normocephalic. Atraumatic. No Arnett signs noted. No raccoon eyes noted Eyes: PERRLA. EOMI. Conjunctiva and sclera normal. Eyelids normal. ENT: TM's Normal. Pharynx normal. Uvula midline. Moist mucous membranes. No trismus noted. No drooling noted. No muffled voice noted. Neck: Normal inspection. Neck supple. FROM. No adenopathy. Thyroid Normal. No meningeal signs. No neck mass noted. CVS: Normal heart rate and rhythm. Heart sound normal. No murmurs noted. Pulses normal throughout. Respiratory: No respiratory distress. Painless inspiration. Breath sounds normal. No wheezes/rales/rhonchi noted. Chest nontender. No accessory muscle usage noted or decreased air movement noted. Abdomen: Soft and nontender. Bowel sounds normal in all 4 quadrants. No distention noted. No organomegaly noted. No visible injury noted. Back: No CVA tenderness. Full range of motion noted. Skin: Skin warm and dry. Normal skin color. Normal skin turgor. No rashes/lesions/lacerations noted. Extremities: No lower extremity edema. Extremities exhibit normal range of motion. Extremities nontender. Neuro: Limited due to alcohol intoxication. Cranial nerve exam: II-XII are grossly intact No motor deficit. No sensory deficit. Reflexes normal. Course Reevaluation(s) Reevaluation #1: Intoxicated, require 5 mg of Valium orally in the emergency room to control her agitation, vague suicidal gesturing, will start physician observation and re- evaluate when she sober. Patient requires IM benzo/Benadryl Time: 15:21 Reevaluation #2: Patient is sleeping now, await for sobriety for care team evaluation. Time: 20:47 Medical Decision Making Differential Diagnosis Differential Diagnoses: The differential diagnosis associated with the presentation includes (Alcohol intoxication, SI, HI, electrolyte derangement, medical clearance.) Admission/Observation Consideration of admission/observation: Escalation of care including admission/observation considered Lab Data MDM Lab Attestation statement: I reviewed the patient's lab results. 06/03/25 14:15 06/03/25 14:15 Labs: Lab Results 06/03/25 06/03/25 Range/Units 14:15 14:49 WBC 7.8 (4.8-10.8) X10*3/uL RBC 4.44 (4.20-5.50) X10*6/uL Hgb 16.1 H (12.0-16.0) g/dl Hct 44.6 (37.0-47.0) % MCV 100.5 H (80.0-98.0) fL MCH 36.3 H (27.0-33.0) pg MCHC 36.1 H (31.0-35.0) g/dl RDW 12.8 (11.0-16.0) % Plt Count 206 (160-400) X10*3/uL MPV 9.7 (9.4-12.3) fL Immature Gran % (Auto) 0.1 (0.0-0.4) % Neut % (Auto) 54.4 (45-73) % Lymph % (Auto) 38.7 (20-40) % [place] % (Auto) 5.1 (2-11) % Eos % (Auto) 1.2 (0-4) % Baso % (Auto) 0.5 (0-2) % Lymph # (Auto) 3.0 (1.2-4.9) X10*3/uL [place] # (Auto) 0.4 (0.1-1.2) X10*3/uL Eos # (Auto) 0.1 (0.0-0.4) X10*3/uL Baso # (Auto) 0.0 (0.0-0.2) X10*3/uL Abs Immat Gran (auto) 0.01 (0.00-0.03) X10*3/uL Absolute Neuts (auto) 4.3 (2.0-8.3) x10*3/uL Absolute Nucleated RBC 0.000 (0.0-0.012) X10*3/uL Nucleated RBC % (auto) 0.0 (0.0-0.2) /100WBC Sodium 146 H (135-145) mmol/L Potassium 3.9 (3.3-5.1) mmol/L Chloride 106 (96-108) mmol/L Carbon Dioxide 27 (22-29) mmol/L Anion Gap 17 (12-20) BUN 12 (9-16) mg/dL Creatinine 0.56 (0.5-1.4) mg/dL Estim Creat Clear Calc 115.9 Estimated GFR > 60 Random Glucose 98 (60-115) mg/dL Calcium 9.3 (8.4-10.2) mg/dL Magnesium 2.0 (1.6-2.6) mg/dL Total Bilirubin 0.8 (0.0-1.0) mg/dL AST 96 H (5-31) U/L ALT 48 H (0-31) U/L Alkaline Phosphatase 171 H (39-117) U/L Total Protein 7.5 (6.5-8.0) g/dL Albumin 4.9 (3.5-5.0) g/dL Urine Color Yellow Urine Appearance Clear Urine pH 7.0 (5.0-9.0) Ur Specific [place] <= 1.005 (1.005-1.025) Urine Protein Negative (Neg-Trace) mg/dL Urine Glucose (UA) Negative (Negative) mg/dL Urine Ketones Negative (Negative) mg/dL Urine Blood Negative (Negative) Urine Nitrite Negative (Negative) Ur Leukocyte Esterase Negative (Negative) Urine Test NEGATIVE (NEGATIVE) Urine Opiates Screen Not Detected (Not Detect) Ur Buprenorphine Scrn Not Detected (Not Detect) ng/mL Ur Oxycodone Screen Not Detected (Not Detect) ng/mL Urine Methadone Screen Not Detected (Not Detect) ng/mL Urine Fentanyl Screen Not Detected (Not Detect) Ur Barbiturates Screen Not Detected (Not Detect) Ur Phencyclidine Scrn Not Detected (Not Detect) Ur Amphetamines Screen Not Detected (Not Detect) U Benzodiazepines Scrn Not Detected (Not Detect) Urine Cocaine Screen Not Detected (Not Detect) U Marijuana (THC) Screen Not Detected (Not Detect) Ethyl Alcohol 410 H* mg/dL Independent Interpretation I performed an independent interpretation of an: EKG (Sinus tachycardia at 01:05, incomplete right bundle branch block, otherwise normal intervals.) Radiology Impression Discussion of test interpretation with radiology: I have reviewed the radiologist's reading. Medications Administered Discontinued Medications Generic Name Dose Route Start Last Admin Trade Name Freq PRN Reason Stop Dose Admin Diazepam 5 mg 06/03/25 15:07 06/03/25 15:15 Diazepam 5 Mg Tablet PO 06/03/25 15:08 5 mg ONCE ONE Administration Diazepam 10 mg 06/03/25 15:23 06/03/25 15:30 Diazepam 10 Mg/2 Ml Cartridge IM 06/03/25 15:24 10 mg STAT STA Administration Diazepam 10 mg 06/03/25 17:45 06/03/25 18:10 Diazepam 10 Mg/2 Ml Cartridge IM 06/03/25 17:46 10 mg STAT STA Administration Diphenhydramine HCl 25 mg 06/03/25 15:23 06/03/25 15:30 Diphenhydramine Hcl 50 Mg/Ml Vial IM 06/03/25 15:24 25 mg ONCE ONE Administration Diphenhydramine HCl 25 mg 06/03/25 17:45 06/03/25 18:11 Diphenhydramine Hcl 50 Mg/Ml Vial IM 06/03/25 17:46 25 mg ONCE ONE Administration Nicotine 21 mg 06/03/25 15:23 06/03/25 15:29 Nicotine 21 Mg Patch.Td24 TRANSDERMA 06/03/25 15:24 21 mg ONCE ONE Administration Ondansetron HCl 4 mg 06/03/25 17:55 06/03/25 18:09 Ondansetron Odt 4 Mg Tab.Glenda TORRES 06/03/25 17:56 4 mg ONCE ONE Administration Discharge Plan Discharge Clinical Impression: Alcohol intoxication Prescriptions: No Action hydroxyzine HCl 50 mg tablet 50 mg PO TID PRN (Reason: for anxiety) Qty: 90 0RF Vivitrol 380 mg suspension,extended rel recon 380 mg IM Q4W Qty: 1 5RF paroxetine HCl [Paxil] 20 mg Tablet 20 mg PO DAILY nicotine 21 mg/24 hr patch 24 hour 1 patch transdermal DAILY Qty: 28 0RF folic acid 1 mg tablet 1 mg PO DAILY Qty: 30 3RF thiamine HCl (vitamin B1) 100 mg tablet 100 mg PO DAILY Qty: 30 3RF naltrexone 50 mg tablet 50 mg PO DAILY Qty: 30 0RF naloxone [Narcan] 4 mg/actuation spray,non-aerosol 4 mg intranasal Q2M PRN (Reason: opioid overdose) Qty: 2 1RF Rx Instructions: spray 1 dose into ONE nostril; alternate nostrils w each dose until help arrives Print Language: Martiniquais
[2025-06-03 15:09] LABS: Cannabinoid Screen Urine Not Detected (Not Detect)
--- NOTE | 2025-06-03 15:21 | PC.NURSE ---
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
[2025-06-03] MEDS: Nicotine 21 MG PATCH.TD24 TRANSDERMA (15:29)
[2025-06-03] MEDS: diazePAM 10 MG/2 ML CARTRIDGE IM ×2 (15:30→18:10)
--- NOTE | 2025-06-03 15:30 | PC.NURSE ---
Patient asking for meds to help her calm down, agreeing to IM injections, states the PO medications are not going to work for her
--- NOTE | 2025-06-03 18:11 | PC.NURSE ---
Patient asking for more medication for sleep, states the PO medication does not work for her
[2025-06-03 22:44] VITALS: BP 140/93; PULSE 90; RESP 18; O2SAT 94
[2025-06-03 23:20] VITALS: BP 134/94; PULSE 99; RESP 18; O2SAT 94
--- NOTE | 2025-06-04 01:46 | PC.NURSE ---
Pt brought over from room 17, pt placed in BH 6, warm blank and drink given.
--- NOTE | 2025-06-04 01:57 | PC.NURSE ---
Received verbal order from Dr. Portillo for po Ativan for withdrawals.
--- NOTE | 2025-06-04 02:05 | PC.NURSE ---
Amber is pt friend who is watching her cats. [phone]
--- NOTE | 2025-06-04 05:45 | PC.NURSE ---
pt is sleeping.
[2025-06-04 06:29] VITALS: BP 163/96; PULSE 83; RESP 17; TEMP 36.9; O2SAT 98
--- NOTE | 2025-06-04 07:32 | PC.NURSE ---
Report recieved. Pt sleeping in BH6. Chest rise noted and skin PWD. Will continue to monitor.
[2025-06-04 07:38] VITALS: BP 186/110; PULSE 99; RESP 16; TEMP 36.8; O2SAT 99
--- NOTE | 2025-06-04 07:40 | PC.NURSE ---
Pt up with steady gait to BR. Withdrawal sx are mild. States she's had a withdrawal SZ but was years ago. Treated for mild headache. Provider made aware of current VS.
--- NOTE | 2025-06-04 08:29 | MHC.CARE ---
T/W spoke with Pt who reported she is unwilling to admit to any out of the area detox. She was informed she will be referred to [facility] however if they do not have bed availability or do not accept her she will be discharged. Pt is in agreement. CARE team assessment, labs, ED provider notes, and nursing notes faxed to [facility]. T/W will follow up.
[2025-06-04 09:05] VITALS: BP 146/100; PULSE 96; RESP 15; TEMP 36.9; O2SAT 100
--- NOTE | 2025-06-04 10:15 | PC.NURSE ---
Reports feeling better since ativan.
--- NOTE | 2025-06-04 10:34 | MHC.CARE ---
Pt completed a phone intake with [facility] and they do not have an available bed at this time. Pt does not present as an imminent risk and will be discharged home with resources. ED provider in agreement.
[2025-06-04 10:51] VITALS: BP 146/100; PULSE 96; RESP 15; TEMP 36.9; O2SAT 100
== END 2025-06-04 10:53 | disposition home or self-care (01) ==
PROVIDERS: Physician Assistant; Emergency Provider Emergency Medicine
DX: F10.220 Alcohol dependence with intoxication, uncomplicated (principal); Y90.8 Blood alcohol level of 240 mg/100 ml or more; R45.851 Suicidal ideations; R45.1 Restlessness and agitation; F17.210 Nicotine dependence, cigarettes, uncomplicated; Z79.899 Other long term (current) drug therapy
CPT/HCPCS: 36415; 80053; 80307; 81003; 81025; 83735; 85025; 93005; 96372; 99285; J1200; J3360; S9485

== ENCOUNTER → 2025-06-03 14:15 | Outpatient (BNV) | payer OTHER, SELFPAY | PROVIDERS: Emergency Provider Emergency Medicine; Visit Provider Internal Medicine Cardiovascular Disease | DX: I45.10 Unspecified right bundle-branch block (principal); R00.0 Tachycardia, unspecified | CPT/HCPCS: 93010 ==